=== PATIENT | female | born 1975 | race Caucasian/White ===

== ENCOUNTER 2019-11-13 20:01 | Emergency (ER) | payer OTHER ==
[~2019-11-13] VITALS: Ht 149.9 cm; Wt 65.8 kg
[2019-11-13 20:33] LABS: URINE BILIRUBIN NEGATIVE (Negative); URINE BLOOD 3+ (Negative); URINE CLARITY CLOUDY; URINE COLOR YELLOW; URINE GLUCOSE-RANDOM NEGATIVE (Negative); URINE LEUKOCYTES-REFLEX NEGATIVE (Negative); URINE NITRITE-REFLEX NEGATIVE (Negative); URINE PROTEIN 2+ (Negative); URINE SPECIFIC GRAVITY >= 1.030 (1.005-1.030); URINE UROBILINOGEN 0.2 E.U./dl (0.2-1.0)
[2019-11-13 20:34] LABS: URINE KETONES 3+ (Negative)
[2019-11-13 20:35] LABS: HEMATOCRIT 40.7 % (37.0-47.0); MCH 30.4 pg (26.0-34.0); MCHC 34.5 g/dL (28.0-37.0); MCV 88.1 fL (80.0-100.0); MPV 7.4 fl. (7.2-11.1); NUCLEATED RBCS 0 /100WBC; PLATELET COUNT* 226 thou/uL (150-400); RBC 4.62 mil/uL (4.20-5.00); RDW-CV 14.7 % (10.5-14.5); WBC 15.4 thou/uL (4.0-11.0)
[2019-11-13 20:41] LABS: SQUAMOUS 4-10 Moderate /LPF (0-3); URINE RBC >20 Many /HPF (0-2)
[2019-11-13 20:42] LABS: CASTS None Seen /LPF (None Seen); CRYSTALS None Seen /LPF (None Seen); MUCUS 0-3 Light strn/LPF (None Seen)
[2019-11-13 20:42] LABS: CALCIUM 8.9 mg/dL (8.5-10.1); POTASSIUM 3.5 mmol/L (3.5-5.1)
[2019-11-13 20:43] LABS: BACTERIA-REFLEX None Seen /HPF (None Seen); URINE WBC-REFLEX 0-5 Rare /HPF (0-5)
[2019-11-13 20:46] LABS: ALBUMIN 4.2 g/dL (3.4-5.0); TOTAL BILIRUBIN 0.5 mg/dL (<0.1-1.0); TOTAL PROTEIN 8.6 g/dL (6.4-8.2)
[2019-11-13 21:04] LABS: ABSOLUTE LYMPHOCYTES 1.8 thou/uL (0.8-5.3); ABSOLUTE MONOCYTES 0.5 thou/uL (0.0-1.2); ABSOLUTE NEUTROPHILS 13.1 thou/uL (1.6-8.1); ANISOCYTOSIS Occasional; PLATELET ESTIMATE ADEQUATE; TOXIC GRANULATION 1+
[2019-11-14] MEDS ORDERED: ZOFRAN ODT4 MG PO (00:43)
[2019-11-14 00:56] VITALS: BP 150/93
[2019-11-15 02:09] LABS: GLYCOHEMOGLOBIN (HGB A1C) 6.5 % (4.8-5.6)
== END 2019-11-14 00:57 | disposition home or self-care (01) ==
LOC: M.ERS 20:01
PROVIDERS: Emergency Medicine
DX: E86.0 Dehydration (principal)